=== PATIENT | female | born 1975 | race Caucasian/White ===

== ENCOUNTER 2023-02-01 15:54 | Emergency (ER) | payer OTHER ==
--- OUTSIDE RECORDS SUMMARY | 2023-02-01 15:58 | XMS REPORT | Continuity of Care Document ---
:1975 Author Organization [facility] t Address [address] [place] [address] [place] [id number] Care Team Providers Name Role Phone [place], [facility] Kristin Espitia [facility] Primary Care Physician FRANCISCA RUST Attending Clinician Unavailable Francisca Earl Attending Clinician Payers Payer Name Policy Type Policy Number Effective Date Expiration Date S ource Problems Condition Condition Condition Status Onset Resolution Last Treating Co mments Source Name Details Category Date Date Treatment Clinician Date Chronic Chronic Disease Active Univers obstructiv obstructiv 01-27 it y of e e 00:00: [place] pulmonary pulmonary 00 Medi ishmael disease, disease, Branch unspecifie unspecifie d d Family Family Disease Active Univers history of history of 01-27 it [place] of malignant malignant [place] ne[place] neoplasm 00 Med[place] of breast of breast Bran ch Fatigue Fatigue Disease Active Univers 01-27 ity of 00:00: [place] [facility] Hyperlipid Hyperlipid Disease Active U nivers emia emia 01-27 ity of 00:00: [place] [facility] Hypertensi Hypertensi Disease Active U nivers ve ve 01-27 ity of disorder disorder 00:00: [place] [facility] Counseling Counseling Disease Active U nivers , , 01-27 ity of unspecifie [place]specifie [place] Snoring Snoring Disease Active Univers 7- ity of 00:00: [place] [facility] Tinea Tinea Disease Active Univers pedis pedis 01-27 ity of 00:00: [place] 00 Medical Branch Diabetes Diabetes Disease Active Unive rs mellitus mellitus 01-27 ity of 00:00: [place] [facility] Type 2 Type 2 Disease Active Univers diabetes diabetes 01-27 ity of mellitus mellitus 00:00: [place] with with 00 Medical unspecifie unspecifie Br anch d d complicati complicati ons ons Morbid Morbid Disease Active Univers obesity obesity 09-04 ity of 00:00: [place] [facility] Pneumonia Pneumonia Disease Active Uni vers of right of right 09-04 ity of middle middle 00:00: [place] lobe due lobe due 00 Medica l to to Branch infectious infectious organism organism Hypoxia Hypoxia Disease Active Univers 09-04 ity of 00:00: [place] [facility] Hyperglyce Hyperglyce Disease Active U nivers domingo domingo 09-04 ity of 00:00: [place] [facility] [place] Allergies, Adverse Reactions, Alerts Allergy Allergy Status Severity Reaction(s) Onset Inactive Treating Comm ents Source Name Type Date Date Clinician Morphine Propensi Active Anaphylaxis U nivers ty to 01-27 ity of adverse 00:00: [place] reaction 00 [facility] [place] Oxycodon Propensi Active Swelling Univ ers e ty to 01-27 ity of adverse 00:00: [place] reaction 00 [facility] [place] MORPHINE DRUG Active High Anaphylaxis Uni vers INGREDI 01-27 ity of 00:00: [place] [facility] OXYCODON DRUG Active SOB Univers E INGREDI 01-27 ity of 00:00: [place] 00 Medical [place] NO KNOWN Drug Active Univers ALLERGIE Class ity of S [facility] Social History Social Habit Start Date Stop Date Quantity Comments Source History of tobacco Cigarette Smoker University of use [facility] Gender identity Universit y of [facility] Sexual orientation Univer sity of [facility] Tobacco use and 2023-01-27 2023-01-27 Smokeless Universit y of exposure 00:00:00 00:00:00 tobacco non-user [facility] Alcohol intake 2023-01-27 2023-01-27 .14 /d University of 00:00:00 00:00:00 [facility] History of Social 2023-01-27 2023-01-27 Univers ity of function 00:00:00 00:00:00 [facility] Sex [birth year] At [birth year] Universit y of 00:00:00 00:00:00 [facility] Smoking Status Start Date Stop Date Source Ex-smoker 2023-01-27 00:00:00 2023-01-27 00:00:00 [facility] Medications Ordered Filled Start Stop Current Ordering Indication Dosage Frequency Signature Comments Components Source Medication Medication Date Date Medication? Clinician (SIG) Name Name ketoconazol Yes Apply to Un aram e 2 % cream 01-27 area(s) ity o f 14:25: daily. [address] tiotropium Yes 1{puff} Inhale 1 Univers bromide 2.5 - Puff. ity of mcg/actuati 14:25: [place] on Mist [address] [place] [address] triamcinolo Yes Apply to Un aram ne 0.1% in 01-27 area(s). ity o f aquaphor 14:25: [place] ([address] ) ointment Branch nystatin Yes Apply to Unive rs 100,000 01-27 area(s) 2 ity of unit/gram 14:25: (two) [place] ointment 12 times Medical daily. Branch ketoconazol Yes Apply to Un aram e 2 % cream 01-27 area(s) ity o f 14:25: daily. [address] tiotropium Yes 1{puff} Inhale 1 Univers bromide 2.5 - Puff. ity of mcg/actuati 14:25: [place] on Mist [address] [place] [address] [facility] Apply to Un aram ne 0.1% in 01-27 area(s). ity o f aquaphor 14:25: [place] (COMPOUNDED [address] [place] [address] ) ointment Branch nystatin Yes Apply to Unive rs 100,000 01-27 area(s) 2 ity of unit/gram 14:25: (two) [place] ointment 12 times Medical daily. Branch metFORMIN Yes 500mg Take 1 Unive rs 500 mg 01-27 tablet by ity of tablet 14:25: mouth in [address] morning Branch and 1 tablet in the evening. Take with meals. albuterol 0 Yes Inhale. Unive rs sulfate 90 7-21 ity of mcg/actuati 14:25: [place] on aebs 11 Medical Branch amLODIPine 0 Yes 2.5mg Take 1 Univ ers 2.5 mg 7-21 tablet by ity of tablet 14:25: mouth in [place] [address] the Medical morning. Branch atorvastati Yes 20mg Take 0.5 Un aram n 40 mg 7-21 tablets by ity of tablet 14:25: mouth at [place] [address] bedtime. Medical Branch cetirizine Yes Take by Univ ers 10 mg 7-21 mouth. ity of tablet 14:25: [place] [address] Medical Branch Cholecalcif Yes 1000U Take 0.5 U nivers prema, 7-21 tablets by ity of Vitamin D3, 14:25: [place]. [place] 50 mcg 11 Medical (2,000 Branch unit) tablet lisinopriL Yes 2.5mg Take 1 Univ ers 2.5 mg 7-21 tablet by ity of tablet 14:25: mouth in [place] [address] the Medical morning. Branch Insulin Yes 20U inject 20 Unive rs Detemir 100 7-21 Units ity of unit/mL (3 14:25: [place] mL) 11 skin in Medical injection the Branch morning and 20 Units in the evening. multivit Yes Take by Univer s with 7-21 mouth. ity of calcium,iro 14:25: [place] n,min 11 Medical (MULTIPLE Branch VITAMIN, WOMENS ORAL) metFORMIN Yes 500mg Take 1 Unive rs 500 mg 7-21 tablet by ity of tablet 14:25: mouth in [place] [address] the Medical morning Branch and 1 tablet in the evening. Take with meals. albuterol 0 Yes Inhale. Unive rs sulfate 90 7-21 ity of mcg/actuati 14:25: [place] on aebs 11 Medical Branch amLODIPine 2022-0 Yes 2.5mg Take 1 Univ ers 2.5 mg 7-21 tablet by ity of tablet 14:25: mouth in [place] [address] the Medical morning. Branch atorvastati Yes 20mg Take 0.5 Un aram n 40 mg 7-21 tablets by ity of tablet 14:25: mouth at [place] [address] bedtime. Medical Branch cetirizine Yes Take by Univ ers 10 mg 7-21 mouth. ity of tablet 14:25: [place] 11 Medical Branch Cholecalcif 0 Yes 1000U Take 0.5 U nivers prema, 7-21 tablets by ity of Vitamin D3, 14:25: [place]. [place] 50 mcg 11 Medical (2,000 Branch unit) tablet lisinopriL Yes 2.5mg Take 1 Univ ers 2.5 mg 7-21 tablet by ity of tablet 14:25: mouth in [place] 11 the Medical morning. Branch Insulin Yes 20U inject 20 Unive rs Detemir 100 7-21 Units ity of unit/mL (3 14:25: [place] mL) 11 skin in Medical injection the Branch morning and 20 Units in the evening. multivit Yes Take by Univer s with 7-21 mouth. ity of calcium,iro 14:25: [place] n,min 11 Medical (MULTIPLE Branch VITAMIN, WOMENS ORAL) vitamin C Yes [id number] 1000mg Take 1 Univers with dom 7-21 tablet by ity o f hips 00:00: mouth in [place] (VITAMIN C) 00 the Medical 1,000 mg morning. Branch tablet empaglifloz Yes [id number] 12.5mg Take 0.5 Univers in 7-21 tablets by ity of (JARDIANCE) 00:00: [place] 25 mg Tab 00 the Medical morning. Branch flash Yes [id number] 1{each} inject 1 U nivers glucose 7-21 Each under ity of sensor 00:00: the skin [place] (FREESTYLE 00 every 14 Medic al MITZI 2 (fourteen) Branch SENSOR) Kit days. Use to check BG at least 2x a day for DX E11.65 vitamin C 0 Yes [id number] 1000mg Take 1 Univers with dom 7-21 tablet by ity o f hips 00:00: mouth in [place] (VITAMIN C) 00 the Medical 1,000 mg morning. Branch tablet empaglifloz 0 Yes [id number] 12.5mg Take 0.5 Univers in 7-21 tablets by ity of (JARDIANCE) 00:00: mouth in [place] 25 mg Tab 00 the Medical morning. Branch flash Yes [id number] 1{each} inject 1 U nivers glucose 7-21 Each under ity of sensor 00:00: the skin [place] (FREESTYLE 00 every 14 Medic al MITZI 2 (fourteen) Branch SENSOR) Kit days. Use to check BG at least 2x a day for DX E11.65 Vital Signs Vital Name Observation Time Observation Value Comments Source Systolic blood 2023-01-27 19:07:00 125 mm[Hg] Univer sity of [facility] Diastolic blood 2023-01-27 19:07:00 78 [facility]Hg[facility] 2023-01-27 19:07:00 85 /min [facility] Body temperature 2023-01-27 19:07:00 37.06 Francie [facility] 2023-01-27 19:07:00 18 /min [facility] Body height 2023-01-27 19:07:00 157.5 cm [facility] Body weight 2023-01-27 19:07:00 122.925 kg [facility] BMI 2023-01-27 19:07:00 49.57 kg/m2 [facility] Oxygen saturation in 2023-01-27 19:07:00 96 /min [facility] Arterial blood by [facility] Pulse oximetry [place] Procedures Procedure Date / Time Performed Performing Clinician Sour e EXTERNAL LAB A1C 2023-01-17 18:57:00 [facility] Start End Encounter Admission Attending Care Care Encounter Source Date/Time Date/Time Type Type Clinicians Facility Department ID 2023-05-05 2023-05-05 Outpatient R EMELIA [facility] [id number] Univers 09:30:00 09:30:00 FRANCISCARaul florian [facility] 2023-01-27 2023-01-27 Office EMI Rust [id number] Univers 14:00:00 15:20:20 Visit [employer] [id number] it y of JUN [id number] Josué as MARCO A?BLEA [id number] [place] [address] MEDICAL OFFICE BUILDING 2023-01-27 2023-01-27 Outpatient R EMELIA, [facility] [id number] Univers 14:00:00 15:20:20 FRANCISCA florian [facility] Results Test Description Test Time Test Comments Results Result Comments Source EXTERNAL LAB A1C 2023-01-17 18:57:00 Test Item Value Reference Range Interpretation Comme nts External HGB A1C (test code = 8.9 % 4.0-6.0 A 4548-4) DIANA (test code = DIANA) Results Combined list of recent chemistry, hematology and other laboratory results from [employer], ranging from 15 months to all on record, depending upon the facility.? ResultsOrder Name Results Value Reference Range Date Interpretation Specimen Comments SourceHEMOGLOBIN A1C+eAG HEMOGLOBIN A1C/HEMOGLOBIN.TOTAL IN BLOOD 8.9 4.2 - 5.8 01/17/2023 H ? Specimen Type: BLOODNo comment entered.Ordering Provider: CAYETANO REYNA Released Date/Time: Jan 17, 2023 01:57 PMReporting Lab: [address] [id number] Lab: [address] [address] [facility] Lab Interpretation (test code = Abnormal 58116-7) [facility] [id number] 18:57:00 Test Item Value Reference Range Interpretation Comments External HGB A1C (test 8.9 % 4.0-6.0 A code = 4548-4) DIANA (test code = DIANA) Results Combined list of recent chemistry, hematology and other laboratory results from [employer] and [employer], ranging from 15 months to all on record, depending upon the facility.? ResultsOrder Name Results Value Reference Range Date Interpretation Specimen Comments SourceHEMOGLOBIN A1C+eAG HEMOGLOBIN A1C/HEMOGLOBIN.TOTAL IN BLOOD 8.9 4.2 - 5.8 01/17/2023 H ? Specimen Type: BLOODNo comment entered.Ordering Provider: CAYETANO REYNA Released Date/Time: Jan 17, 2023 01:57 PMReporting Lab: [address] [id number] Lab: [facility] [facility] [address] [facility] Lab Interpretation Abnormal (test code = 08610-5) [facility]
--- NOTE | 2023-02-01 16:54 | RAD REPORT ---
EXAM DESCRIPTION: RAD - Tib Fib Right - 02/01/2023 4:48 pm CLINICAL HISTORY: trauma Trauma, pain and swelling COMPARISON: No comparisons FINDINGS: Oblique fracture of the distal shaft of the fibula is present. Mildly displaced medial mal leoli fracture also present. Small posterior malleoli fracture evident. No dislocation. Large calcane al spurs. IMPRESSION: Trimalleolar fracture is present.
[2023-02-01] MEDS ORDERED: FENTANYL CITR 100 MCG/2 ML ONE (16:55)
[2023-02-01] MEDS ORDERED: ONDANSETRON 4 MG/2 ML VIAL ONE (16:56)
--- NOTE | 2023-02-01 17:22 | ER ---
Nurse's Notes [facility] Name: Madina Nguyen Age: 47 yrs Sex: Female : 1975 Arrival Date: 02/01/2023 Time: 15:54 Bed 17 Private MD: Diagnosis: Trimalleolar ankle fracture right Presentation: 02/01 16:04 Chief complaint: EMS states: toned out to home, pt fell down front stairs 3-4 steps eh3 onto R ankle. EMS reports initial BP of 85/48, pt takes 2 BP meds and had taken them about 1 hr before fall. EMS gave 500mL NS bolus and BP increased to 95/58. EMS also gave 30mg of Toradol and pain decreased from 7/10 to 5/10. Coronavirus screen: Vaccine status: Patient reports receiving the 2nd dose of the covid vaccine. Ebola Screen: No symptoms or risks identified at this time. Initial Sepsis Screen: Does the patient meet any 2 criteria? No. Patient's initial sepsis screen is negative. Does the patient have a suspected source of infection? No. Patient's initial sepsis screen is negative. Risk Assessment: Do you want to hurt yourself or someone else? Patient reports no desire to harm self or others. Onset of symptoms was February 01, 2023. 16:04 Method Of Arrival: EMS: [facility] 16:04 Acuity: KATHY 3 eh3 Triage Assessment: 16:20 General: Appears in no apparent distress. uncomfortable, Behavior is calm, cooperative, eh3 appropriate for age. Pain: Complains of pain in right ankle. Neuro: Level of Consciousness is awake, alert, obeys commands, Oriented to person, place, time, situation. Cardiovascular: Capillary refill < 3 seconds Patient's skin is warm and dry. Respiratory: Airway is patent Respiratory effort is even, unlabored, Respiratory pattern is regular, symmetrical. GI: Abdomen is round non-distended. Derm: Skin is pink, warm \T\ dry. Musculoskeletal: Circulation, motion, and sensation intact. Range of motion: intact in all extremities, limited in right ankle Swelling present in right ankle. Injury Description: Abrasion sustained to right leg. Historical: - Allergies: 16:20 Morphine; eh3 16:20 Oxycodone; eh3 16:20 Smallpox Vaccines; eh3 - Home Meds: 16:20 atorvastatin oral [Active]; insulin detemir U-100 100 unit/mL (3 mL) subcutaneous eh3 Insulin Pen 10 units twice a day [Active]; tiotropium bromide inhalation 2 inhalations [Active]; amlodipine oral [Active]; Albuterol Inhl [Active]; Lisinopril Oral [Active]; metformin 1,000 mg Oral tablet 2 times per day [Active]; - PMHx: 16:20 Chronic obstructive lung disease; Diabetes mellitus; Hypertensive disorder; Obesity; eh3 - Immunization history:: Adult Immunizations up to date. - Social history:: Smoking status: Patient/guardian denies using tobacco, the patient reports quitting approximately 2.5 years ago, Patient uses alcohol, but reports only rare drinking. Screenin:20 [facility] ED Fall Risk Assessment (Adult) Score/Fall Risk Level 0 - 2 = Low Risk. Abuse eh3 screen: Denies threats or abuse. Denies injuries from another. Nutritional screening: No deficits noted. Tuberculosis screening: No symptoms or risk factors identified. Assessment: 16:20 Reassessment: No changes from previously documented assessment. See triage assessment. eh3 17:00 Reassessment: Patient appears in no apparent distress at this time. Patient and/or eh3 family updated on plan of care and expected duration. Pain level reassessed. Patient is alert, oriented x 3, equal unlabored respirations, skin warm/dry/pink. 18:00 Reassessment: Patient appears in no apparent distress at this time. Patient and/or eh3 family updated on plan of care and expected duration. Pain level reassessed. Patient is alert, oriented x 3, equal unlabored respirations, skin warm/dry/pink. 19:00 Reassessment: Patient appears in no apparent distress at this time. Patient and/or eh3 family updated on plan of care and expected duration. Pain level reassessed. Patient is alert, oriented x 3, equal unlabored respirations, skin warm/dry/pink. 20:00 Reassessment: Patient appears in no apparent distress at this time. Patient and/or eh3 family updated on plan of care and expected duration. Pain level reassessed. Patient is alert, oriented x 3, equal unlabored respirations, skin warm/dry/pink. 20:12 Reassessment: report given to Rk SANCHEZ at [place] [facility]. kl Vital Signs: 16:04 BP 125 / 76; Pulse 83; Resp 18; Temp 98.2(O); Pulse Ox 93% on R/A; Weight 122.92 kg; eh3 Height 5 ft. 2 in. ; Pain 5/10; 17:00 BP 138 / 64; Pulse 83; Resp 18; Pulse Ox 95% on R/A; eh3 18:00 BP 126 / 58; Pulse 82; Resp 18; Pulse Ox 94% on R/A; eh3 19:00 BP 112 / 53; Pulse 79; Resp 15; Pulse Ox 95% on R/A; eh3 20:00 BP 103 / 59; Pulse 83; Resp 15; Pulse Ox 95% on R/A; eh3 16:04 Body Mass Index 49.57 (122.92 kg, 157.48 cm) eh3 16:04 Pain Scale: Adult 3 ED Course: 16:04 Patient arrived in ED. eh3 16:04 Earnestine Ny MD is Attending Physician. sp3 16:20 Triage completed. eh3 16:20 Arm band placed on. eh3 16:20 Patient has correct armband on for positive identification. Bed in low position. Call 3 light in reach. Side rails up X2. Provided Education on: N/A. Pulse ox on. NIBP on. Door closed. Noise minimized. 16:20 Maintain EMS IV. Dressing intact. Good blood return noted. Site clean \T\ dry. Gauge \T\ eh 3 site: 20g LAC. 16:27 Adriana Navarrete, LAURA is Primary Nurse. eh3 16:50 Tib Fib Right XRAY In Process Unspecified. EDMS 17:40 Diet: initiated transfer to [place], faxed chart to ER as requested.. bd 18:55 Called [place] for update on transfer, still waiting for approval. rv1 19:24 [facility] to [facility] by Dr. Alcala. rv1 20:12 Mundo wrap to right knee and right ankle Orthoglass splint: Posterior short lleg splint jb5 applied on right leg. stirrup splint applied on right leg. 20:25 No provider procedures requiring assistance completed. Patient transferred, IV remains eh3 in place. Administered Medications: 16:45 Not Given (Possible allergy): HYDROmorphone IVP 1 mg IVP once sp3 16:55 Drug: Ondansetron IVP 4 mg Route: IVP; Site: left antecubital; 3 18:00 Follow up: Response: No adverse reaction 3 16:55 Drug: fentaNYL (PF) IVP 50 mcg Route: IVP; Site: left antecubital; 3 18:00 Follow up: Response: No adverse reaction 3 Medication: 20:25 VIS not applicable for this client. 3 Outcome: 17:22 ER care complete, transfer ordered by . 3 20:26 Transferred by ground EMS to [facility] Transfer form completed. 3 20:26 Condition: stable 20:26 Instructed on the need for admit. 20:41 Patient left the ED. 3 Signatures: Dispatcher [employer] EDMS Vidhya Rich Kimberly, RN Evelin Reyes Setul, MD MD sp3 Adriana Navarrete RN RN 3 Xochitl Carvalho [facility]
--- NOTE | 2023-02-01 17:22 | EDPHYS ---
Physician Documentation [facility] Name: Madina Nguyen Age: 47 yrs Sex: Female : 1975 Arrival Date: 02/01/2023 Time: 15:54 Bed 17 Private MD: ED Physician Earnestine Ny HPI: 02/01 17:17 This 47 yrs old Female presents to ER via EMS with complaints of Ankle Injury. sp3 17:17 47-year-old female with history of diabetes and COPD now presents to the ED with right sp3 ankle and lower extremity pain secondary to mechanical fall she suffered outside of her porch at home. Patient arrives via EMS who administered ketorolac IV and normal saline. Patient was in a towel and Rafa wrap splint. She denies any other injuries including head, neck, other extremities, chest, abdomen, back. ROS is otherwise negative. No prior injury to the right ankle and last p.o. intake was at 4 PM today.. Historical: - Allergies: 16:20 Morphine; eh3 16:20 Oxycodone; eh3 16:20 Smallpox Vaccines; eh3 - Home Meds: 16:20 atorvastatin oral [Active]; insulin detemir U-100 100 unit/mL (3 mL) subcutaneous eh3 Insulin Pen 10 units twice a day [Active]; tiotropium bromide inhalation 2 inhalations [Active]; amlodipine oral [Active]; Albuterol Inhl [Active]; Lisinopril Oral [Active]; metformin 1,000 mg Oral tablet 2 times per day [Active]; - PMHx: 16:20 Chronic obstructive lung disease; Diabetes mellitus; Hypertensive disorder; Obesity; eh3 - Immunization history:: Adult Immunizations up to date. - Social history:: Smoking status: Patient/guardian denies using tobacco, the patient reports quitting approximately 2.5 years ago, Patient uses alcohol, but reports only rare drinking. ROS: 17:18 Constitutional: Negative for fever, chills, and weight loss, Eyes: Negative for injury, sp3 pain, redness, and discharge, Neck: Negative for injury, pain, and swelling, Cardiovascular: Negative for chest pain, palpitations, and edema, Respiratory: Negative for shortness of breath, cough, wheezing, and pleuritic chest pain, Abdomen/GI: Negative for abdominal pain, nausea, vomiting, diarrhea, and constipation, Back: Negative for injury and pain, Skin: Negative for injury, rash, and discoloration, Neuro: Negative for headache, weakness, numbness, tingling, and seizure, Psych: Negative for depression, anxiety, suicide ideation, homicidal ideation, and hallucinations, Allergy/Immunology: Negative for hives, rash, and allergies, Endocrine: Negative for neck swelling, polydipsia, polyuria, polyphagia, and marked weight changes, Hematologic/Lymphatic: Negative for swollen nodes, abnormal bleeding, and unusual bruising. 17:18 All other systems are negative. Exam: 17:18 Constitutional: This is a well developed, well nourished patient who is awake, alert, sp3 and in no acute distress. Head/Face: Normocephalic, atraumatic. Neck: Trachea midline, no thyromegaly or masses palpated, and no cervical lymphadenopathy. Supple, full range of motion without nuchal rigidity, or vertebral point tenderness. No Meningismus. Chest/axilla: Normal chest wall appearance and motion. Nontender with no deformity. No lesions are appreciated. Cardiovascular: Regular rate and rhythm with a normal S1 and S2. No gallops, murmurs, or rubs. Normal PMI, no JVD. No pulse deficits. Respiratory: Lungs have equal breath sounds bilaterally, clear to auscultation and percussion. No rales, rhonchi or wheezes noted. No increased work of breathing, no retractions or nasal flaring. Abdomen/GI: Soft, non-tender, with normal bowel sounds. No distension or tympany. No guarding or rebound. No evidence of tenderness throughout. Back: No spinal tenderness. No costovertebral tenderness. Full range of motion. Skin: Warm, dry with normal turgor. Normal color with no rashes, no lesions, and no evidence of cellulitis. Neuro: Awake and alert, GCS 15, oriented to person, place, time, and situation. Cranial nerves II-XII grossly intact. Motor strength 5/5 in all extremities. Sensory grossly intact. Cerebellar exam normal. Normal gait. Psych: Awake, alert, with orientation to person, place and time. Behavior, mood, and affect are within normal limits. 17:18 Neuro: Swelling noted to bilateral lower ankle sides and distal tib-fib area. There is surface abrasions and bruising but no open fracture noted. Distal capillary refill is normal. Gait not assessed. Patient has pain to palpation on bilateral malleoli. No pain to the foot or base of the fifth metatarsal.. Vital Signs: 16:04 BP 125 / 76; Pulse 83; Resp 18; Temp 98.2(O); Pulse Ox 93% on R/A; Weight 122.92 kg; eh3 Height 5 ft. 2 in. ; Pain 5/10; 17:00 BP 138 / 64; Pulse 83; Resp 18; Pulse Ox 95% on R/A; eh3 18:00 BP 126 / 58; Pulse 82; Resp 18; Pulse Ox 94% on R/A; eh3 19:00 BP 112 / 53; Pulse 79; Resp 15; Pulse Ox 95% on R/A; eh3 20:00 BP 103 / 59; Pulse 83; Resp 15; Pulse Ox 95% on R/A; eh3 16:04 Body Mass Index 49.57 (122.92 kg, 157.48 cm) [facility] 16:04 Pain Scale: Adult eh3 MDM: 16:09 Patient medically screened. sp3 17:19 Data reviewed: vital signs, nurses notes, radiologic studies. ED course: Differential sp3 diagnosis includes ankle sprain versus fracture. X-ray demonstrates trimalleolar fracture with medial malleolus, lateral distal fibula, and posterior malleolus. Given that this is an unstable fracture and will require surgery, we will try and transfer patient to the [facility] which is her primary provider for orthopedic intervention. Pain will be treated with fentanyl and Zofran. We will also place temporary splint using Ortho-Glass and Mundo wrap.. 02/01 17:29 Order name: SARS RAPID bd 02/01 18:03 Order name: Glucose, Ancillary Testing EDMS 02/01 16:10 Order name: Tib Fib Right XRAY; Complete Time: 17:03 sp3 02/01 16:10 Order name: NPO; Complete Time: 16:27 sp3 02/01 16:10 Order name: IV Saline Lock; Complete Time: 16:27 sp3 02/01 17:21 Order name: Ankle Splint: Orthoglass: Stirrup; Complete Time: 20:25 sp3 02/01 17:21 Order name: Ankle Splint: Orthoglass: Posterior; Complete Time: 20:25 sp3 02/01 17:32 Order name: Accnkechieck; Complete Time: 18:11 sp3 Administered Medications: 16:45 Not Given (Possible allergy): HYDROmorphone IVP 1 mg IVP once sp3 16:55 Drug: Ondansetron IVP 4 mg Route: IVP; Site: left antecubital; eh3 18:00 Follow up: Response: No adverse reaction eh3 16:55 Drug: fentaNYL (PF) IVP 50 mcg Route: IVP; Site: left antecubital; eh3 18:00 Follow up: Response: No adverse reaction eh3 Disposition Summary: 02/01/23 17:22 Transfer Ordered Transfer Location: [facility] sp3 Reason: Higher level of care sp3 Condition: Stable sp3 Problem: new sp3 Symptoms: have worsened sp3 Accepting Physician: [facility](02/01/23 20:41) eh3 Diagnosis - Trimalleolar ankle fracture right sp3 Forms: - Medication Reconciliation Form sp3 - SBAR form sp3 Signatures: Dispatcher [employer] EDMS Earnestine Ny MD MD sp3 Adriana Navarrete RN RN eh3 Corrections: (The following items were deleted from the chart) 16:28 16:11 Ankle Right 3 View+RAD.RAD.BRZ ordered. EDAL EDAL 20:41 17:22 [facility] sp3 eh3
[2023-02-01 18:25] LABS: SARS-CoV-2 Antigen Rapid Res Negative (Negative)
[2023-02-01 20:49] VITALS: TEMP 98.2
[2023-02-01 20:54] VITALS: O2SAT 95
[2023-02-01 20:56] VITALS: BP 103/59
== END 2023-02-01 20:41 ==
LOC: ER 15:54
DX: S82.851A Displaced trimalleolar fracture of right lower leg, initial encounter for closed fracture (principal); I10 Essential (primary) hypertension; J44.9 Chronic obstructive pulmonary disease, unspecified; E11.9 Type 2 diabetes mellitus without complications; Z79.4 Long term (current) use of insulin; Z20.822 Contact with and (suspected) exposure to COVID-19; Z88.5 Allergy status to narcotic agent; Z88.7 Allergy status to serum and vaccine
CPT/HCPCS: 36415; 82947; 73590; 87811; J3010; J2405; 96374; 96375; 99285